=== PATIENT | female | born 1945 | race Caucasian/White ===

== ENCOUNTER 2025-01-08 11:03 | Outpatient (AMB) | payer MEDICARE, SELFPAY ==
--- OUTSIDE RECORDS SUMMARY | 2022-10-28 15:18 | XMS_ITS | Encounter Summary ---
Author Organization [facility] Address [address] [place] [address] Phone Care Team Providers Care Pump And Blower Operator Name Role Phone Jeannie Banda MD Primary Care Prov ider Encounter Details Date Type Department Care Team (Late st Contact Info) Description 10/28/2022 3:18 PM EDT Hospital Encounter [facility] [address] [place] [phone] Nuria Keys, HIGH ENERGY FORMING EQUIPMENT OPERATOR [address] [place] [address] [email or web address] Social History Tobacco Use Types Packs/Day [...] report originally createdby Leif Bueno. Nuria Keys HIGH ENERGY FORMING EQUIPMENT OPERATOR IMG XR CHEST Final Resul t documented in this encounter Visit Diagnoses Not on filedocumented in this encounter Care Teams Pump And Blower Operator Relationship Specialty Start Date End Date Jeannie Banda MD [address] [place] [address] [phone] PCP - General 10/28/22 documented as of this encounter Additional Source Comments The information contained in this document represents components of the legal health record. It is not the complete legal health record.[facility]
--- NOTE | 2025-01-08 10:34 | MHC.PC.OV ---
Vital Signs 01/08/25 11:06 Height 5 ft 5 in Weight 163 lb 6 oz BMI 27.2 BP 114/60 Blood Pressure Location Lt brachial Position Sitting Respiration 16 Pulse 78 Pulse Source Pulse Oximeter Temp 97.9 F Temp Source Oral Pulse Oximetry (%) 98 Oxygen Delivery Method Room Air Intake Visit Reasons: new patient visit Aircraft Steel Fabricator Required: No Accompanied by: Self / Same As Patient Allergies oxycodone Allergy (Intermediate, Verified 01/08/25 11:11) Vomiting tramadol Adverse Reaction (Severe, Verified 01/08/25 11:37) Angioedema Medication List - Last Reconciled 01/08/25 by Estrellita Cook MD acetaminophen ER 650 mg PO Q6H atorvastatin 10 mg PO DAILY blood sugar diagnostic (Accu-Chek Guide test strips) As directed cefadroxil 500 mg PO Q12H celecoxib 200 mg PO DAILY diphenhydramine HCl (Benadryl Allergy) 25 mg PO BEDTIME PRN lancets (Accu-Chek Fastclix Lancet Drum) As directed losartan 50 mg PO DAILY metformin 500 mg PO BID oxybutynin chloride 5 mg PO BID pantoprazole 40 mg PO DAILY polyethylene glycol 3350 (Miralax) 17 grams PO DAILY Tobacco use date assessed: 01/08/25 Fall risk assessment: No Falls in past year Dental Screening Dental Screen Date: 01/08/25 Did you have a dental visit in the last 12 months?: No Did you have a dental problem in the last 6 months where you did not have access to dental care?: No HPI HPI Comments History of Present Illness Details The patient is a 79-year-old female presenting to establish care. Travels to [place] during Winter. Has PCP there. Wants to establish PCP in [place] hence reason for visit. S/P Right Hip Surgery done by [facility]: Post-surgery right hip pain is managed with Tylenol and icing. Was also placed on celebrex and aspirin 325mg bid. Had angioedema reaction to tramadol. Bruising and swelling are noted, especially around the right hip. Established with [facility]. Reports of minimal pain levels, managed with prescribed medication and physical therapy. Angioedema: Recent episode of lip and tongue swelling after tramadol intake. Previous occurrences without a clear etiology. Immediate management was effective with Benadryl. Diabetes Mellitus Type 2: Recent fasting glucose levels from 169-180 mg/dL. A1c at 6.7% in November. Stress and postoperative condition noted to affect glycemic control. Hypertension: Patient continues routine management of blood pressure. Hyperlipidemia: Statin therapy continued as part of management. Urinary Urgency: Frequent urination noted, potentially linked to medication, post-surgery limitations, and fluid management. Medical History: - Diabetes Mellitus Type 2 - Hypertension - Hyperlipidemia - Recurrent Angioedema episodes Surgical History: - Right Hip Surgery (December 31) Medications: - Metformin 500 mg twice daily for Diabetes Mellitus Type 2 - Aspirin 325 mg twice daily for postoperative thromboprophylaxis - Statin for Hyperlipidemia - Tylenol for Right Hip Pain - Oxybutynin for urinary urgency Social History: - Plans to travel to [place] in February - Reports activity includes exercising and walking - Reports typical fluid intake includes milk with medications in evenings Diagnostic Results: - Labs: Recent A1c was 6.7% in November. - Tests: Fasting glucose levels reported between 169-180 mg/dl. Review of Systems - Musculoskeletal: Reports bruising and swelling in right leg after hip surgery. - Endocrine: per hpi - Genitourinary: Reports urinary urgency with often nightly frequency. - Skin: Recent episode of angioedema; lip and tongue swelling. Physical Exam - General: NAD Chest: CTABL. Card: normal s1, s2 Abd: SNTND, +BS Extremities: 1+ edema RLE compared to left Neuro: AOX3 Musculoskeletal- Bruising noted on right hip ; right lower extremity more swollen compared to the left. Assessment and Plan 1. Postoperative Care following Right Hip Surgery - Tylenol and icing continue; monitor swelling. - PT scheduled per orthopedics recs; follow up with ortho consultation for ultrasound if swelling persists. 2. Angioedema - Autoimmune labs ordered; tramadol noted as allergy. 3. Diabetes Mellitus Type 2 - Monitor glucose; aim for fasting below 130 mg/dL. - Plan for A1c retest in February when in [place] 4. Hypertension - Maintain regimen 5. Hyperlipidemia - Statin therapy continues. 6. Urinary Urgency - Shift fluid intake; practice timed voids. Discussion Notes During the appointment, I discussed several health issues with the patient. Regarding a recent angioedema incident, I recommended avoiding tramadol and ordered autoimmune labs to identify any underlying conditions. We addressed diabetes management with the goal of stabilizing fasting glucose levels . We also discussed shifting fluid intake earlier in the day for urinary urgency, maintaining current medications for hypertension and hyperlipidemia, and monitoring anxiety levels. I informed the patient about the potential necessity of an ultrasound to rule out DVT. Patient Instructions - Continue taking Tylenol for pain as needed. - Ice your hip and leg regularly to reduce swelling. - Contact your orthopedic team about swelling of right lower extremity - Monitor your blood sugar daily and aim for fasting levels closer to 120-130 mg/dL. - Finish your fluid intake by around 6:00 PM to help manage nighttime urination. - Avoid taking tramadol due to previous allergic-like reactions. - Maintain your current medication routine as discussed. [facility] Medical History (Updated 01/08/25 @ 15:11 by Estrellita Cook MD) Bruising Angioedema Urinary incontinence Hearing loss, left Herpes zoster B12 deficiency anemia Diabetes mellitus type 2 in nonobese Osteoarthritis of right hip Hyperlipidemia Primary hypertension Surgical History (Updated 01/08/25 @ 11:14 by Estrellita Cook MD) H/O tubal ligation History of total right hip arthroplasty Hx of cholecystectomy Social History Housing: House Patient Tobacco Use Status: Former Tobacco user Years Smoked: 30 years, quit around 49yo e-Cigarette/Vaping Use: Never Used service: No Current occupational status: retired Questionnaire PHQ-9 Over the last 2 weeks, how often have you been bothered by any of the following problems? 1. Little interest or pleasure in doing things: not at all 2. Feeling down, depressed, or hopeless: not at all 3. Trouble falling or staying asleep, or sleeping too much: several days 4. Feeling tired or having little energy: several days 5. Poor appetite or overeating: not at all 6. Feeling bad about yourself - or that you are a failure or have let yourself or your family down: not at all 7. Trouble concentrating on things, such as reading the newspaper or watching television: not at all 8. Moving or speaking so slowly that other people could have noticed. Or the opposite - being so fidgety or restless that you have been moving around a lot more than usual: not at all 9. Thoughts that you would be better off or of hurting yourself in some way: not at all Total score: 2 Source: Developed by Drs. Bang Muniz, Alexandra Lackey, Blane Hernández and colleagues, with an educational nitin from [employer]. Thrive Questionnaire Date Thrive assessed: 01/08/25 I am a: Patient What is your living situation today?: I have a steady place to live Within the past 12 months, did the food you bought not last and you didn't have the money to get more?: Never true Within the past 12 months, did you worry whether your food would run out before you got money to buy more?: Never true Do you have trouble paying for medicines?: No Do you have trouble getting transportation to medical appointments?: No Do you have trouble paying your heating and electricity bill?: No Do you have trouble taking care of your child, family member or friend?: No Do you have trouble with day-to-day activities such as bathing, preparing meals, shopping, managing finances, etc.?: No Are you currently unemployed and looking for a job?: No Are you interested in more education?: No THRIVE Score: 0 AUDIT C Alcohol Use Questionnaire (AUDIT-C) 1. How often do you have a drink containing alcohol?: 4 or more times a week 2. How many drinks containing alcohol do you have on a typical day when you are drinking?: 1 or 2 3. How often do you have six or more drinks on one occasion?: Never Total Score: 4 GUS-7 AMB Questionnaire GUS-7 Date GUS - 7 assessed: 01/08/25 Feeling nervous, anxious, or on edge: 0 = Not at all Not being able to stop or control worryin = Not at all Worrying too much about different things: 0 = Not at all Trouble relaxin = Not at all Being so restless that it is hard to sit still: 1 = Several days Becoming easily annoyed or irritable: 0 = Not at all Feeling afraid as if something awful might happen: 0 = Not at all Total GUS-7 score (0-4 normal; 5-9 mild; 10-14 moderate; 15-21 severe): 1 Source: Developed by Drs. Bang Muniz, Alexandra Lackey, Blane Hernández and colleagues, with an educational nitin from [employer]. Physical exam (Primary Care) Vital Signs: Last Vital Signs Temp 97.9 F 01/08/25 11:06 Pulse 78 01/08/25 11:06 Resp 16 01/08/25 11:06 BP 114/60 01/08/25 11:06 Pulse Ox 98 01/08/25 11:06 Oxygen Delivery Method Room Air 01/08/25 11:06 BMI result Body Mass Index 27.2 Tobacco/Smoking Status: Tobacco use Status Tobacco use date assessed 01/08/25 01/08/25 10:34 Patient Tobacco Use Status Former Tobacco user 01/08/25 11:24 e-Cigarette/Vaping Use Never Used 01/08/25 11:24 PHQ-9: PHQ-9 Score PHQ-9: Total score 2 01/08/25 15:11 Thrive Assessment: Date of Thrive Assessment Date Thrive assessed 01/08/25 01/08/25 12:01 Coding Level of Care Code New Pt Level 4 (95475) Complex EM visit Add On G2211 Diagnoses Primary hypertension I10 Angioedema, subsequent encounter T78.3XXD Encounter type: subsequent encounter Hyperlipidemia E78.5 Diabetes mellitus type 2 in nonobese E11.9 Urinary incontinence, unspecified type R32 Urinary Incontinence type: unspecified incontinence Assessment & Plan Assessment & Plan (1) Primary hypertension: Code(s): I10 - Essential (primary) hypertension Category: Medical (2) Angioedema: Code(s): T78.3XXA - Angioneurotic edema, initial encounter Category: Medical Qualifiers: Encounter type: subsequent encounter Qualified Code(s): T78.3XXD - Angioneurotic edema, subsequent encounter (3) Hyperlipidemia: Code(s): E78.5 - Hyperlipidemia, unspecified Category: Medical (4) Diabetes mellitus type 2 in nonobese: Code(s): E11.9 - Type 2 diabetes mellitus without complications Category: Medical (5) Urinary incontinence: Code(s): R32 - Unspecified urinary incontinence Category: Medical Qualifiers: Urinary Incontinence type: unspecified incontinence Qualified Code(s): R32 - Unspecified urinary incontinence Plan - Continue Tylenol and icing for pain. - Monitor right lower extremity swelling; call orthopedics for further evaluation and consideration of ultrasound - Shift fluid intake to earlier in the day. - Maintain current medication regimen. Orders: Orders JOSE Reflex Titer and Pattern Today T78.3XXA - Angioneurotic edema, initial encounter Sm Sm/PATCH WORKER Antibodies Today T78.3XXA - Angioneurotic edema, initial encounter Erythrocyte Sedimentation Rate Today T78.3XXA - Angioneurotic edema, initial encounter Complement C4 Today T78.3XXA - Angioneurotic edema, initial encounter Complete Blood Count Auto Diff Today T14.8XXA - Other injury of unspecified body region, initial encounter, T78.3XXA - Angioneurotic edema, initial encounter Comprehensive Met. Panel Today I10 - Essential (primary) hypertension, T78.3XXA - Angioneurotic edema, initial encounter Anti DNA DS Antibody Today T78.3XXA - Angioneurotic edema, initial encounter C Reactive Protein Today T78.3XXA - Angioneurotic edema, initial encounter
[2025-01-08 11:06] VITALS: BP 114/60; PULSE 78; RESP 16; TEMP 36.6; O2SAT 98; BMI 27.2
--- OUTSIDE RECORDS SUMMARY | 2025-01-08 14:16 | XMS_ITS | Clinical Summary ---
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 Active atorvastatin (LIPITOR) 10 MG tablet 08/04/2022 Active ACCU-CHEK GUIDE TEST STRIPS Strp strips USE TO CHECK BLOOD SUGAR EVERY DAY 10/05/2022 Active ACCU-CHEK FASTCLIX LANCET DRUM Misc 2022 Active losartan (COZAAR) 50 MG tablet 07/26/2022 Active oxyBUTYnin (DITROPAN-XL) 5 MG 24 hr tablet 08/04/2022 Act franko Active Problems No known active problems Immunizations Immunization Administration Dates Next Due COVID-19 (Pre-01/03) Moderna Vaccine, mRNA, PF 01/20/2021,05/22/2020,04/24/2020 Influenza High-Dose Quadriva lent Preservative Free IM 01/02/2020 Tdap 08/18/2018 Social History Tobacco Use Types Packs/Day Years Used Date Smoking Tobacco: Former Cigarettes Smokeless Tobacco: Never Tobacco Cessation:Counseling Given: Not Answered Education Answer Date Recorded Are you interested [...] on file Sexual Orientation Not on file Last Filed Vital Signs Vital Sign Reading Time Taken Comments Blood Pressure 138/78 10/28/2022 3:04 PM EDT Pulse 66 10/28/2022 3:04 PM EDT Temperature 36.4 C (97.6 F) 10/28/2022 3:04 PM EDT Respiratory Rate 18 10/28/2022 3:04 PM EDT Oxygen Saturation 97% 10/28/2022 3:04 PM EDT Inhaled Oxygen Concentration - - Weight 77.6 kg (171 lb) 10/28/2022 3:04 PM EDT Height - - Body Mass Index - - Plan of Treatment Health Maintenance Due Date Last Done Comments CREATININE LEVEL 1946 LIPID PANEL 1946 POTASSIUM LEVEL 1946 DEPRESSION SCREENING 1958 SMOKING Hx and SMOKELESS TOBACCO SCREENING 10/27/1959 HEPATITIS C SCREENING 1964 PNEUMOCOCCAL VACCINES (50+ years) (1 of 1 - PCV) 1996 ZOSTER VACCINES (1 of 2) 1996 OSTEOPOROSIS SCREENING INITI AL (ONE-TIME) 10/27/2011 RSV VACCINE (1 - 1-dose 75+ series) 2021 INFLUENZA VACCINE (#1) 2024 01/02/2020 COVID-19 VACCINE (4 - 2024-2 6 season) 2024 01/20/2021, 05/22/2020, 04/24/2020 Adult Td,Tdap Booster 08/18/2028 08/18/2018 HEPATITIS A VACCINES Aged Out No long er eligible based on patient's age to complete this topic HIB VACCINES Aged Out No longer eligi ble based on patient's age to complete this topic MENINGOCOCCAL VACCINES (ACWY) Aged Out No longer eligible based on patient's age to complete this topic MENINGOCOCCAL VACCINES (B) Aged Out N o longer eligible based on patient's age to complete this topic Medical Devices Not on file Insurance MEDICARE REPLACEMENT MEDICARE REPLACEMENT MEDICARE REPLACEMENT MEDICARE REPLACEMENT MEDICARE REPLACEMENT Care Teams Petroleum Blending Plant Operator Relationship Specialty Start Date End Date Jeannie Banda MD [address] [place] [address] PCP - General 10/28/22 Additional Source Comments The information contained in this document represents components of the legal health record. It is not the complete legal health record.[facility]
== END 2025-01-08 11:58 | disposition home or self-care (01) ==
LOC: HO.HMCHD 11:03
PROVIDERS: PCP Internal Medicine; Visit Provider Internal Medicine
DX: I10 Essential (primary) hypertension (principal); T78.3XXD Angioneurotic edema, subsequent encounter; E78.5 Hyperlipidemia, unspecified; E11.9 Type 2 diabetes mellitus without complications; R32 Unspecified urinary incontinence

== ENCOUNTER 2025-01-08 12:24 | Outpatient (REF) | payer MEDICARE, SELFPAY ==
[2025-01-08 13:13] LABS: MANUAL DIFF FLAG NO
[2025-01-08 13:23] LABS: Hematocrit 31.9 % (37.0-47.0); Hemoglobin 10.5 g/dl (12.0-16.0); Imm Gran Abs Auto 0.06 X10*3/uL (0.00-0.03); Imm Gran Pct Auto 0.8 % (0.0-0.4); Lymphocytes Absolute Auto 1.6 X10*3/uL (1.2-4.9); Mean Corpuscular HGB Conc 32.9 g/dl (31.0-35.0); Mean Corpuscular Hemoglobin 29.2 pg (27.0-33.0); Mean Corpuscular Volume 88.6 fL (80.0-98.0); NRBC Abs Auto 0.000 X10*3/uL (0.0-0.012); NRBC Pct Auto 0.0 /100WBC (0.0-0.2); Platelet Count 298 X10*3/uL (160-400); Red Blood Count 3.60 X10*6/uL (4.20-5.50); White Blood Count 7.7 X10*3/uL (4.8-10.8)
[2025-01-08 13:44] LABS: Alanine Aminotransferase 22 U/L (0-31); Albumin Level 3.9 g/dL (3.5-5.0); Alkaline Phosphatase 75 U/L (39-117); Anion Gap 14 (12-20); Aspartate Amino Transferase 21 U/L (5-31); Blood Urea Nitrogen 19 mg/dL (9-16); Calcium 9.8 mg/dL (8.4-10.2); Carbon Dioxide 25 mmol/L (22-29); Chloride 106 mmol/L (96-108); Estimated Glomerular Filt Rate > 60; Potassium 4.2 mmol/L (3.3-5.1); Sodium 141 mmol/L (135-145); Total Protein 6.6 g/dL (6.5-8.0)
[2025-01-14 23:29] LABS: SM/Ribonucleoprotein Ab <1.0 NEG AI (<1.0 NEG); Smith Protein <1.0 NEG AI (<1.0 NEG)
[2025-01-16 12:18] LABS: Anti Nuclear Antibody Pattern Nuclear, Homogeneous; Anti Nuclear Antibody Screen POSITIVE (NEGATIVE); Anti Nuclear Antibody Titer 1:80 titer
== END 2025-01-08 12:25 | disposition home or self-care (01) ==
LOC: HO.10HDL 12:24
PROVIDERS: Visit Provider Internal Medicine
DX: Z01.84 Encounter for antibody response examination (principal); T78.3XXA Angioneurotic edema, initial encounter; I10 Essential (primary) hypertension; T14.8XXA Other injury of unspecified body region, initial encounter
CPT/HCPCS: 36415; 80053; 85025; 85652; 86038; 86039; 86140; 86160; 86225; 86235; 99202

== ENCOUNTER 2025-01-10 08:44 | Outpatient (AMB) | payer MEDICARE, SELFPAY ==
--- OUTSIDE RECORDS SUMMARY | 2022-10-28 15:18 | XMS_ITS | Encounter Summary ---
Author Organization [facility] Address [address] [place] [address] Phone Care Team Providers Care District Resource Officer Name Role Phone Jeannie Banda MD Primary Care Prov ider Encounter Details Date Type Department Care Team (Late st Contact Info) Description 10/28/2022 3:18 PM EDT Hospital Encounter [facility] [address] [place] [address] Nuria Keys, CIRCUIT JUDGE [address] [place] [address] [email or web address] Social History Tobacco Use Types Packs/Day [...] report originally createdby Leif Bueno. Nuria Keys CIRCUIT JUDGE IMG XR CHEST Final Resul t documented in this encounter Visit Diagnoses Not on filedocumented in this encounter Care Teams District Resource Officer Relationship Specialty Start Date End Date Jeannie Banda MD [address] [place] [address] [phone] PCP - General 10/28/22 documented as of this encounter Additional Source Comments The information contained in this document represents components of the legal health record. It is not the complete legal health record.[facility]
--- NOTE | 2025-01-10 08:36 | A.OFFPC_ITS ---
Vital Signs 01/10/25 08:47 Height 5 ft 5 in Weight 160 lb 8 oz BMI 26.7 BP 120/60 Blood Pressure Location Lt brachial Position Sitting Respiration 16 Pulse 80 Pulse Source Pulse Oximeter Temp 97.8 F Temp Source Temporal Artery Scan Pulse Oximetry (%) 98 Intake Visit Reasons: DVT gastroc f/u Network Control Operator Required: No Accompanied by: Self / Same As Patient Allergies oxycodone Allergy (Intermediate, Verified 01/10/25 08:49) Vomiting tramadol Adverse Reaction (Severe, Verified 01/10/25 08:49) Angioedema Medication List - Last Reconciled 01/10/25 by Estrellita Cook MD acetaminophen ER 650 mg PO Q6H apixaban (Eliquis DVT-PE Treat 30D Start) PO PER PKG DIR atorvastatin 10 mg PO DAILY blood sugar diagnostic (Accu-Chek Guide test strips) As directed diphenhydramine HCl (Benadryl Allergy) 25 mg PO BEDTIME PRN lancets (Accu-Chek Fastclix Lancet Drum) As directed losartan 50 mg PO DAILY metformin 500 mg PO BID oxybutynin chloride 5 mg PO BID pantoprazole 40 mg PO DAILY polyethylene glycol 3350 (Miralax) 17 grams PO DAILY Tobacco use date assessed: 01/08/25 Dental Screening Dental Screen Date: 01/08/25 HPI HPI Comments History of Present Illness Details The patient is a 79 year old female presenting with management of postoperative deep vein thrombosis (DVT) in left leg. Postoperative Deep Vein Thrombosis (DVT): Diagnosed with a clot in the left leg post-surgery 2 days ago. Started anticoagulation therapy eliquis. Plan for transition to warfarin due to cost. INR target discussed. Vitamin B12 Deficiency: History of B12 deficiency managed with supplements, paused pre-surgery. Iron Deficiency Anemia: Post-surgery anemia noted, associated with bruising. Angioedema: Past issues with lip swelling linked to tramadol. Labs pending for evaluation. Increased Respiratory Effort/shortness of breath: Family noticed increased breathing effort. Patient experiences this during exertion. Social History: - Discussed having a daughter who is a n hernestoe Diagnostic Results: - Tests: Pending labs for autoimmune chrystal lysis - Diagnostics: Plan for stat lung CT ang io to determine any clots in lungs Review of Systems - Respiratory: Reports increased respira tory effort during exertion; Denies chest pain - Msk: improved right hip pain Physical Exam - Respiratory- Lungs clear to auscultati on bilaterally - Cardiovascular- Normal S1 S2 heart marga nds - Abdominal- Abdomen soft, non-tender, n on-distended - General- No acute distress Assessment and Plan 1. Postoperative Deep Vein Thrombosis (D VT) - Warfarin planned for financial feasibi lity. - Monitor INR. - Coumadin clinic referral. - Lung CT angio planned - Complete at least 7 days of eliquis th en transition to coumadin 2. Vitamin B12 Deficiency - Resume supplements. 3. Iron Deficiency Anemia - Follow-up labs. 4. Angioedema - Avoid tramadol. 5. Increased Respiratory Effort - Monitor symptoms. . Discussion Notes During our discussion, we detailed the management of the patient's postoperative deep vein thrombosis, emphasizing the switch to warfarin due to cost. I explained the importance of monitoring INR levels to prevent complications. A lung CT angio will assess for potential pulmonary embolism, given the reported increased respiratory effort, though no acute distress was observed. We reviewed the halting and resuming of vitamin supplements. The patient was advised on contraindications for certain pain medications . We discussed the immediate reporting of any new or progression in symptoms. Patient Instructions - Monitor for any unusual bleeding or in creased bruising. - Avoid NSAIDs; use Tylenol for pain man agement instead. - Return to all vitamin and supplement r egimens post-surgery as previously instructed. - Watch for any new symptoms like shortn ess of breath. - Seek immediate care if you experience chest pain or there's blood in your stool. - Expect a call regarding the scheduling of your lung CT scan. [facility] Medical History (Updated 01/10/25 @ 12:35 by Estrellita Cook MD) Deep vein thrombosis Shortness of breath Bruising Angioedema Urinary incontinence Hearing loss, left Herpes zoster B12 deficiency anemia Diabetes mellitus type 2 in nonobese Osteoarthritis of right hip Hyperlipidemia Primary hypertension Surgical History (Updated 01/08/25 @ 11:14 by Estrellita Cook MD) H/O tubal ligation History of total right hip arthroplasty Hx of cholecystectomy Social History Housing: House Patient Tobacco Use Status: Former Tobacco user Years Smoked: 30 years, quit around 49yo e-Cigarette/Vaping Use: Never Used service: No Current occupational status: retired Questionnaire Thrive Questionnaire Date Thrive assessed: 01/08/25 GUS-7 AMB Questionnaire GUS-7 Date GUS - 7 assessed: 01/08/25 Source: Developed by Drs. Bang Muniz, Alexandra Lackey, Blane Hernández and colleagues, with an educational nitin from [employer]. Physical exam (Primary Care) Vital Signs: Last Vital Signs Temp 97.8 F 01/10/25 08:47 Pulse 80 01/10/25 08:47 Resp 16 01/10/25 08:47 BP 120/60 01/10/25 08:47 Pulse Ox 98 01/10/25 08:47 BMI result Body Mass Index 26.7 Tobacco/Smoking Status: Tobacco use Status Tobacco use date assessed 01/08/25 01/10/25 08:36 Patient Tobacco Use Status Former Tobacco user 01/10/25 08:36 e-Cigarette/Vaping Use Never Used 01/10/25 08:36 Thrive Assessment: Date of Thrive Assessment Date Thrive assessed 01/08/25 01/10/25 08:36 Coding Level of Care Code Est Pt Level 4 (12024) Complex EM visit Add On G2211 Diagnoses Acute deep vein thrombosis (DVT) of right lower extremity, unspecified vein I82.401 DVT location: lower extremity Affected thrombotic vein of extremity: unspecified vein of extremity Chronicity: acute Laterality: right Shortness of breath R06.02 Angioedema, subsequent encounter T78.3XXD Encounter type: subsequent encounter Anemia due to vitamin B12 deficiency, unspecified B12 deficiency type D51.9 Vitamin B12 deficiency anemia type: unspecified B12 deficiency Assessment & Plan Assessment & Plan (1) Deep vein thrombosis: Code(s): I82.409 - Acute embolism and thrombosis of unspecified deep veins of unspecified lower extremity Category: Medical Qualifiers: DVT location: lower extremity Affected thrombotic vein of extremity: unspecified vein of extremity Chronicity: acute Laterality: right Qualified Code(s): I82.401 - Acute embolism and thrombosis of unspecified deep veins of right lower extremity (2) Shortness of breath: Code(s): R06.02 - Shortness of breath Category: Medical (3) Angioedema: Code(s): T78.3XXA - Angioneurotic edema, initial encounter Category: Medical Qualifiers: Encounter type: subsequent encounter Qualified Code(s): T78.3XXD - Angioneurotic edema, subsequent encounter (4) B12 deficiency anemia: Code(s): D51.9 - Vitamin B12 deficiency anemia, unspecified Category: Medical Qualifiers: Vitamin B12 deficiency anemia type: unspecified B12 deficiency Qualified Code(s): D51.9 - Vitamin B12 deficiency anemia, unspecified Plan - Bridge therapy to warfarin with INR monitoring. - Immediate lung CTangio for further assessment due to increased respiratory effort - Resume vitamin supplements. Orders: Orders CT angio chest PE protocol Today R06.02 - Shortness of breath Referrals Anticoagulation Service/Clinic I82.409 - Acute embolism and thrombosis of unspecified deep veins of unspecified lower extremity
[2025-01-10 08:47] VITALS: BP 120/60; PULSE 80; RESP 16; TEMP 36.6; O2SAT 98; BMI 26.7
== END 2025-01-10 09:28 | disposition home or self-care (01) ==
LOC: HO.HMCHD 08:45
PROVIDERS: PCP Internal Medicine; Visit Provider Internal Medicine
DX: I82.401 Acute embolism and thrombosis of unspecified deep veins of right lower extremity (principal); R06.02 Shortness of breath; T78.3XXD Angioneurotic edema, subsequent encounter; D51.9 Vitamin B12 deficiency anemia, unspecified

== ENCOUNTER → 2025-01-10 08:44 | Outpatient (BNVA) | payer MEDICARE, SELFPAY | PROVIDERS: PCP Internal Medicine; Visit Provider Internal Medicine | DX: I82.401 Acute embolism and thrombosis of unspecified deep veins of right lower extremity (principal); R06.02 Shortness of breath; T78.3XXD Angioneurotic edema, subsequent encounter; D51.9 Vitamin B12 deficiency anemia, unspecified; D50.9 Iron deficiency anemia, unspecified; Z79.01 Long term (current) use of anticoagulants | CPT/HCPCS: 99212 ==

== ENCOUNTER 2025-01-11 13:43 | Outpatient (REF) | payer MEDICARE, SELFPAY ==
--- OUTSIDE RECORDS SUMMARY | 2022-10-28 15:18 | XMS_ITS | Encounter Summary ---
Author Organization [facility] Address [address] [place] [address] Phone Care Team Providers Care Insole Channeler Name Role Phone Jeannie Banda MD Primary Care Prov ider Encounter Details Date Type Department Care Team (Late st Contact Info) Description 10/28/2022 3:18 PM EDT Hospital Encounter [facility] [address] [place] [address] Nuria Keys, FEDERAL AGENT [address] [place] [address] [email or web address] Social History Tobacco Use [...] report originally createdby Leif Bueno. Nuria Keys FEDERAL AGENT IMG XR CHEST Final Resul t documented in this encounter Visit Diagnoses Not on filedocumented in this encounter Care Teams Insole Channeler Relationship Specialty Start Date End Date Jeannie Banda MD [address] [place] [address] [phone] PCP - General 10/28/22 documented as of this encounter Additional Source Comments The information contained in this document represents components of the legal health record. It is not the complete legal health record.[facility]
--- NOTE | ~2025-01-11 | CT_ITS ---
EXAMINATION: CT CHEST ANGIOGRAPHY WITH IV CONTRAST INDICATION: R06.02 - Shortness of breath COMPARISON: There are no prior studies available for comparison. TECHNIQUE: Helical CT scan of the chest was performed following administration of intravenous contrast (65 mL Omnipaque 350). The contrast bolus was timed to optimally opacify the pulmonary arteries. Thin sections were obtained through the pulmonary arteries. Coronal and sagittal reformatted images were generated. 3D/MIP reconstructed images are also obtained and reviewed. This CT exam was performed with one or more of the following dose reduction techniques: automated exposure control, adjustment of the mA and/or kV according to patient size, use of iterative reconstruction technique. DLP: 100 mGy-cm CHEST: THYROID: The thyroid gland is unremarkable. PULMONARY ARTERIES: No intraluminal filling defects are identified within the pulmonary arteries to suggest pulmonary emboli. LUNGS: There is a mild to moderate emphysema. There is a 4 mm nodule within the right lower lobe (series 7, image 81) and a 3 mm nodule of the left lung apex (series 7, image 24). MEDIASTINUM: There is no mediastinal lymphadenopathy. SVETLANA: There is no hilar lymphadenopathy. CARDIOVASCULATURE: The heart is normal in size. There is no pericardial effusion. The thoracic aorta is normal in caliber. DEGREE OF CORONARY CALCIFICATION: not evaluable, due to dense contrast in the coronary arteries. PLEURA: There is no pleural effusion. No pneumothorax. MAIN AIRWAYS: The mainstem bronchi and proximal branches are patent. AXILLA: There is no axillary lymphadenopathy. UPPER ABDOMEN: The visualized portions of the liver, spleen, and left adrenal gland are unremarkable. There is a 1.8 cm right adrenal nodule. BONES AND SOFT TISSUES: There is an 8 mm density in the upper outer quadrant of the left breast, suspicious for a mass. CT/CT angio chest PE protocol IMPRESSION: 1. No evidence of pulmonary emboli. 2. 8 mm possible mass in the upper outer quadrant of the left breast. Correlation with mammography and breast ultrasound is recommended. 3. Mild to moderate emphysema. Because to moderate emphysema is an independent risk factor for lung cancer, consider entering the patient into a program of yearly lung cancer screening with low dose chest CT. 4. Subcentimeter bilateral pulmonary nodules as described. Please see Fleischner Society guidelines below. Fleischner Criteria for pulmonary nodule follow-up SOLID NODULES: Low risk patient: <6mm: no follow-up 6-8mm: 6 month follow-up CT >8mm: PET/Biopsy/ 3 month follow-up CT High risk patient: <6mm: 12 month follow-up CT 6-8mm: 6 month follow-up CT >8mm: PET/Biopsy/ 3 month follow-up CT SUB-SOLID/GROUNDGLASS NODULES: All patients: > or = 6mm: 6 month follow-up CT *Please note that in patients in the following categories, the Fleischner criteria do not apply: Immunocompromised, lung cancer screening population, age below 35, and patients with known malignancy Electronically signed by: Bang Crane MD 01/11/2025 02:44 PM EDT
[2025-01-11] MEDS: iohexoL 350 MG/ML 100 ML INFUS..BTL IV (14:31)
--- OUTSIDE RECORDS SUMMARY | 2025-01-11 14:42 | XMS_ITS | Clinical Summary ---
Author Organization [facility] Address [address] [id number] Phone Care Team Providers Care Glass Worker Name Role Phone Jeannie Banda MD Primary [...] REPLACEMENT MEDICARE REPLACEMENT MEDICARE REPLACEMENT Care Teams Glass Worker Relationship Specialty Start Date End Date Jeannie Banda MD [address] [place] [address] PCP - General 10/28/22 Additional Source Comments The information contained in this document represents components of the legal health record. It is not the complete legal health record.[facility]
== END 2025-01-11 13:44 | disposition home or self-care (01) ==
LOC: HO.CT 13:43
PROVIDERS: PCP Internal Medicine; Visit Provider Internal Medicine
DX: R06.02 Shortness of breath (principal)
CPT/HCPCS: 71275; Q9967

== ENCOUNTER → 2025-01-11 13:44 | Outpatient (BNV) | payer MEDICARE, SELFPAY | PROVIDERS: PCP Internal Medicine; Visit Provider Radiology Diagnostic Radiology | DX: R06.02 Shortness of breath (principal) | CPT/HCPCS: 71275 ==

== ENCOUNTER 2025-02-01 10:31 | Outpatient (AMB) | payer MEDICARE, SELFPAY ==
--- OUTSIDE RECORDS SUMMARY | 2022-10-28 14:18 | XMS_ITS | Encounter Summary ---
Author Organization [facility] Address [address] [place] [address] Phone Care Team Providers Care Enrollment Eligibility Representative Name Role Phone Jeannie Banda MD Primary Care Prov ider Encounter Details Date Type Department Care Team (Late st Contact Info) Description 10/28/2022 3:18 PM EDT Hospital Encounter [facility] [address] [place] [address] Nuria Keys, CHARGING MANIPULATOR [address] [place] [address] [email or web address] Social History Tobacco Use Types Packs/Day Years [...] report originally createdby Leif Bueno. Nuria Keys CHARGING MANIPULATOR IMG XR CHEST Final Resul t documented in this encounter Visit Diagnoses Not on filedocumented in this encounter Care Teams Enrollment Eligibility Representative Relationship Specialty Start Date End Date Jeannie Banda MD [address] [place] [address] [phone] PCP - General 10/28/22 documented as of this encounter Additional Source Comments The information contained in this document represents components of the legal health record. It is not the complete legal health record.[facility]
--- NOTE | 2025-02-01 10:43 | A.OFFPC_ITS ---
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 Required: No Accompanied by: Spouse Allergies oxycodone Allergy (Intermediate, Verified 02/01/25 10:45) Vomiting tramadol Adverse Reaction (Severe, Verified 02/01/25 10:45) Angioedema Medication List - Last Reconciled 02/01/25 by Estrellita Cook MD acetaminophen ER 650 mg PO Q6H PRN apixaban (Eliquis DVT-PE Treat 30D Start) PO PER PKG DIR atorvastatin 10 mg PO DAILY blood sugar diagnostic (Accu-Chek Guide test strips) As directed cholecalciferol (vitamin D3) 50 mcg PO DAILY cyanocobalamin (vitamin B-12) 1,000 mcg PO DAILY enoxaparin (Lovenox) 109 mg (0.7267 mL) subcut DAILY 3 weeks lancets (Accu-Chek Fastclix Lancet Drum) As directed losartan 50 mg PO DAILY magnesium glycinate mg PO metformin 500 mg PO BID oxybutynin chloride 5 mg PO BID pantoprazole 40 mg PO DAILY polyethylene glycol 3350 (Miralax) 17 grams PO DAILY Tobacco use date assessed: 01/08/25 Dental Screening Dental Screen Date: 01/08/25 HPI HPI Comments History of Present Illness Details The patient is a 79 year old individual presenting for management and transition of anticoagulant therapy from eliquis to warfarin for DVT management. Long-term Anticoagulation: The patient is currently taking Eliquis and took a dose this morning. A transition to warfarin (Coumadin) is planned, which requires bridging therapy with Lovenox injections. The patient reports a fear of needles but will receive instruction on self-administration. The goal is to stabilize the patient's INR between 2 and 3 before upcoming travel. Post op hip surgery: The patient is undergoing physical therapy and has an upcoming appointment with Dr. Hudson on the , which is hoped to be a discharge visit. [facility] Medical History (Updated 01/10/25 @ 12:35 by Estrellita Cook MD) Deep vein thrombosis Shortness of breath Bruising Angioedema Urinary incontinence Hearing loss, left Herpes zoster B12 deficiency anemia Diabetes mellitus type 2 in nonobese Osteoarthritis of right hip Hyperlipidemia Primary hypertension Surgical History (Updated 01/08/25 @ 11:14 by Estrellita Cook MD) H/O tubal ligation History of total right hip arthroplasty Hx of cholecystectomy Social History Housing: House Patient Tobacco Use Status: Former Tobacco user Years Smoked: 30 years, quit around 49yo e-Cigarette/Vaping Use: Never Used service: No Current occupational status: retired Questionnaire PHQ-9 Over the last 2 weeks, how often have you been bothered by any of the following problems? 1. Little interest or pleasure in doing things: not at all 2. Feeling down, depressed, or hopeless: not at all 3. Trouble falling or staying asleep, or sleeping too much: not at all 4. Feeling tired or having little energy: not at all 5. Poor appetite or overeating: not at all 6. Feeling bad about yourself - or that you are a failure or have let yourself or your family down: not at all 7. Trouble concentrating on things, such as reading the newspaper or watching television: not at all 8. Moving or speaking so slowly that other people could have noticed. Or the opposite - being so fidgety or restless that you have been moving around a lot more than usual: not at all 9. Thoughts that you would be better off or of hurting yourself in some way: not at all Total score: 0 Source: Developed by Drs. Bang Muniz, Blane Barton and colleagues, with an educational nitin from [employer]. Thrive Questionnaire Date Thrive assessed: 01/08/25 GUS-7 AMB Questionnaire GUS-7 Date GUS - 7 assessed: 01/08/25 Source: Developed by Drs. Bang Muniz, Blane Barton and colleagues, with an educational nitin from [employer]. Review of Systems Narrative Review of Systems - Gen: negative: - Musculoskeletal: per hpi Physical exam (Primary Care) Vital Signs: Last Vital Signs Temp 97.3 F 02/01/25 10:44 Pulse 72 02/01/25 10:44 Resp 16 02/01/25 10:44 BP 130/62 02/01/25 10:44 Pulse Ox 97 02/01/25 10:44 Oxygen Delivery Method Room Air 02/01/25 10:44 BMI result Body Mass Index 27.1 Tobacco/Smoking Status: Tobacco use Status Tobacco use date assessed 01/08/25 02/01/25 10:51 Patient Tobacco Use Status Former Tobacco user 02/01/25 10:51 e-Cigarette/Vaping Use Never Used 02/01/25 10:51 PHQ-9: PHQ-9 Score PHQ-9: Total score 0 02/01/25 11:18 Thrive Assessment: Date of Thrive Assessment Date Thrive assessed 01/08/25 02/01/25 10:51 Narrative Physical Exam - Cardiovascular: Heart auscultated. soft murmur across precordium - Respiratory: Lungs auscultated. No wheezing, clear to ascultation bilaterally -Extremities: no edema bilaterally Coding Level of Care Code Est Pt Level 3 (84365) Complex visit Add On G2211 Diagnoses Acute deep vein thrombosis (DVT) of right lower extremity, unspecified vein I82.401 Affected thrombotic vein of extremity: unspecified vein of extremity Chronicity: acute DVT location: lower extremity Laterality: right Assessment & Plan Assessment & Plan (1) Deep vein thrombosis: Code(s): I82.409 - Acute embolism and thrombosis of unspecified deep veins of unspecified lower extremity Category: Medical Qualifiers: Affected thrombotic vein of extremity: unspecified vein of extremity Chronicity: acute DVT location: lower extremity Laterality: right Qualified Code(s): I82.401 - Acute embolism and thrombosis of unspecified deep veins of right lower extremity Plan Assessment and Plan 1. Long-term Anticoagulation - The patient requires a transition from Eliquis to warfarin due to cost of eliquis. This necessitates a bridging period with Lovenox injections. The goal is to achieve a therapeutic INR of 2-3. The patient's reported needle phobia is a potential barrier to adherence. The plan includes: - Discontinue Eliquis; the last dose was taken this morning. - Obtain a baseline INR level today. - Start warfarin 3 mg (three 1 mg tablets) daily, beginning tomorrow. - Initiate Lovenox injections to bridge therapy. The patient will receive injection training from a nurse today at 4 PM. - Schedule a follow-up INR check on Tuesday to monitor therapy. 2. Post op hip surgery - The plan is to continue PT and follow up with Dr. Hudson on the for potential discharge from care. Plan - The patient will discontinue Eliquis. - A baseline INR will be drawn today at the lab. - The patient will start warfarin (Coumadin) 3 mg (three 1 mg tablets) daily, beginning tomorrow. - The patient will begin Lovenox injections as a bridge until the warfarin is therapeutic. - The patient will return to the clinic at 4 PM today for a nurse visit for Lovenox injection training. - A follow-up INR lab test is scheduled for next Tuesday. - The patient will continue physical therapy. - Once the warfarin dose is stable, a 90-day supply will be ordered through [facility]. - Patient will then have coumadin managed by her PCP in [place] Discussion Notes I discussed with the patient the plan to transition from Eliquis to warfarin (Coumadin). I explained that this transition requires a bridging period with Lovenox injections, which will likely last for 3-5 days, to ensure the patient's blood remains adequately anticoagulated while the warfarin takes effect. We discussed the Lovenox self-injection technique. Patient Instructions - Do not take any more doses of your Eliquis medication. - Starting tomorrow, take 3 tablets of warfarin (Coumadin) 1 mg once every day. - You will need to give yourself a Lovenox shot once a day. You can take this around lunchtime. - Please return to the clinic today at 4:00 PM. A nurse will show you how to give yourself the Lovenox shot. - Please go to the lab in our building today for a blood test (INR). - You must return to the lab on Tuesday for another blood test. This does not require fasting. Orders: Orders Prothrombin Time INR Today I82.401 - Acute embolism and thrombosis of unspecified deep veins of right lower extremity Partial Thromboplastin Time Today I82.401 - Acute embolism and thrombosis of unspecified deep veins of right lower extremity Prothrombin Time INR 02/05/25 I82.401 - Acute embolism and thrombosis of unspecified deep veins of right lower extremity Medications: New warfarin 3 mg (3 x 1 mg) PO DAILY 90 tabs 1RF 30 days Discontinued apixaban (Eliquis DVT-PE Treat 30D Start) Discontinued Reason: Doctor's Order PO PER PKG DIR 74 [id number] [id number] Patient Instructions: STOP ELIQUIS EVENING DOSE ON 02/01 START LOVENOX INJECTION THIS AFTERNOON START WARFARIN 3MG ON 02/02 MORNING, TAKE LOVENOX IN AFTERNOON GET REPEAT INR ON 02/05
[2025-02-01 10:44] VITALS: BP 130/62; PULSE 72; RESP 16; TEMP 36.3; O2SAT 97; BMI 27.1
--- OUTSIDE RECORDS SUMMARY | 2025-02-01 11:14 | XMS_ITS | Clinical Summary ---
Author Organization [facility] Address [address] [phone] Phone Care Team Providers Care Roughener Name Role Phone Jeannie Banda MD Primary [...] REPLACEMENT MEDICARE REPLACEMENT MEDICARE REPLACEMENT Care Teams Roughener Relationship Specialty Start Date End Date Jeannie Banda MD [address] [place] [address] PCP - General 10/28/22 Additional Source Comments The information contained in this document represents components of the legal health record. It is not the complete legal health record.[facility]
== END 2025-02-01 11:22 | disposition home or self-care (01) ==
LOC: HO.HMCHD 10:31
PROVIDERS: PCP Internal Medicine; Visit Provider Internal Medicine
DX: I82.401 Acute embolism and thrombosis of unspecified deep veins of right lower extremity (principal)

== ENCOUNTER 2025-02-01 11:26 | Outpatient (REF) | payer MEDICARE, SELFPAY ==
[2025-02-01 14:33] LABS: INTERNATIONAL NORM RATIO 1.4 (0.9-1.1); Prothrombin Time 17.3 SEC (11.2-13.5)
[2025-02-01 14:35] LABS: Partial Thromboplastin Time 36.1 SEC (26.7-34.1)
== END 2025-02-01 11:27 | disposition home or self-care (01) ==
LOC: HO.10HDL 11:26
PROVIDERS: Visit Provider Internal Medicine
DX: I82.401 Acute embolism and thrombosis of unspecified deep veins of right lower extremity (principal)
CPT/HCPCS: 36415; 85610; 85730; 99212

== ENCOUNTER 2025-02-05 11:31 | Outpatient (REF) | payer MEDICARE, SELFPAY ==
--- OUTSIDE RECORDS SUMMARY | 2022-10-28 14:18 | XMS_ITS | Encounter Summary ---
Author Organization [facility] Address [address] [place] [address] Phone Care Team Providers Care Felt Machine Mechanic Name Role Phone Jeannie Banda MD Primary Care Prov ider Encounter Details Date Type Department Care Team (Late st Contact Info) Description 10/28/2022 3:18 PM EDT Hospital Encounter [facility] [address] [place] [address] Nuria Keys, MASSEUR/MASSEUSE [address] [place] [address] [email or web address] Social History Tobacco Use Types Packs/Day Years [...] report originally createdby Leif Bueno. Nuria Keys MASSEUR/MASSEUSE IMG XR CHEST Final Resul t documented in this encounter Visit Diagnoses Not on filedocumented in this encounter Care Teams Felt Machine Mechanic Relationship Specialty Start Date End Date Jeannie Banda MD [address] [place] [address] [phone] PCP - General 10/28/22 documented as of this encounter Additional Source Comments The information contained in this document represents components of the legal health record. It is not the complete legal health record.[facility]
[2025-02-05 14:34] LABS: INTERNATIONAL NORM RATIO 1.0 (0.9-1.1); Prothrombin Time 12.6 SEC (11.2-13.5)
--- OUTSIDE RECORDS SUMMARY | 2025-02-05 15:17 | XMS_ITS | Clinical Summary ---
Author Organization [facility] Address [address] [phone] Phone Care Team Providers Care Condenser Operator Name Role Phone Jeannie Banda MD [...] REPLACEMENT MEDICARE REPLACEMENT MEDICARE REPLACEMENT Care Teams Condenser Operator Relationship Specialty Start Date End Date Jeannie Banda MD [address] [place] [address] PCP - General 10/28/22 Additional Source Comments The information contained in this document represents components of the legal health record. It is not the complete legal health record.[facility]
== END 2025-02-05 11:32 | disposition home or self-care (01) ==
LOC: HO.10HDL 11:31
PROVIDERS: Visit Provider Internal Medicine
DX: I82.401 Acute embolism and thrombosis of unspecified deep veins of right lower extremity (principal)
CPT/HCPCS: 36415; 85610

== ENCOUNTER 2025-02-11 11:14 | Outpatient (REF) | payer MEDICARE, SELFPAY ==
--- OUTSIDE RECORDS SUMMARY | 2022-10-28 14:18 | XMS_ITS | Encounter Summary ---
Author Organization [facility] Address [address] [place] [address] Phone Care Team Providers Care Quality Control Associate Name Role Phone Jeannie Banda MD Primary Care Prov ider Encounter Details Date Type Department Care Team (Late st Contact Info) Description 10/28/2022 3:18 PM EDT Hospital Encounter [facility] [address] [place] [address] Nuria Keys, TAPER OPERATOR [address] [place] [address] [email or web address] Social History Tobacco Use Types Packs/Day [...] report originally createdby Leif Bueno. Nuria Keys TAPER OPERATOR IMG XR CHEST Final Resul t documented in this encounter Visit Diagnoses Not on filedocumented in this encounter Care Teams Quality Control Associate Relationship Specialty Start Date End Date Jeannie Banda MD [address] [place] [address] [phone] PCP - General 10/28/22 documented as of this encounter Additional Source Comments The information contained in this document represents components of the legal health record. It is not the complete legal health record.[facility]
[2025-02-11 13:43] LABS: INTERNATIONAL NORM RATIO 1.8 (0.9-1.1); Prothrombin Time 22.0 SEC (11.2-13.5)
--- OUTSIDE RECORDS SUMMARY | 2025-02-11 14:43 | XMS_ITS | Clinical Summary ---
Author Organization [facility] Address [address] [phone] Phone Care Team Providers Care Patent Law Specialist Name Role Phone Jeannie Banda MD Primary [...] REPLACEMENT MEDICARE REPLACEMENT MEDICARE REPLACEMENT Care Teams Patent Law Specialist Relationship Specialty Start Date End Date Jeannie Banda MD [address] [place] [address] PCP - General 10/28/22 Additional Source Comments The information contained in this document represents components of the legal health record. It is not the complete legal health record.[facility]
== END 2025-02-11 11:15 | disposition home or self-care (01) ==
LOC: HO.10HDL 11:14
PROVIDERS: Visit Provider Internal Medicine
DX: I82.401 Acute embolism and thrombosis of unspecified deep veins of right lower extremity (principal)
CPT/HCPCS: 36415; 85610

== ENCOUNTER 2025-02-14 11:37 | Outpatient (REF) | payer MEDICARE, SELFPAY ==
[2025-02-14 13:21] LABS: INTERNATIONAL NORM RATIO 2.3 (0.9-1.1); Prothrombin Time 27.1 SEC (11.2-13.5)
== END 2025-02-14 11:38 | disposition home or self-care (01) ==
LOC: HO.10HDL 11:37
PROVIDERS: Visit Provider Internal Medicine
DX: I82.401 Acute embolism and thrombosis of unspecified deep veins of right lower extremity (principal)
CPT/HCPCS: 36415; 85610

== ENCOUNTER 2025-02-18 10:24 | Outpatient (REF) | payer MEDICARE, SELFPAY ==
[2025-02-18 11:13] LABS: INTERNATIONAL NORM RATIO 2.7 (0.9-1.1); Prothrombin Time 32.2 SEC (11.2-13.5)
== END 2025-02-18 10:25 | disposition home or self-care (01) ==
LOC: HO.10HDL 10:24
PROVIDERS: Visit Provider Internal Medicine
DX: I82.401 Acute embolism and thrombosis of unspecified deep veins of right lower extremity (principal)
CPT/HCPCS: 36415; 85610

== ENCOUNTER 2025-02-25 11:07 | Outpatient (REF) | payer MEDICARE, SELFPAY ==
[2025-02-25 12:31] LABS: INTERNATIONAL NORM RATIO 2.6 (0.9-1.1); Prothrombin Time 30.9 SEC (11.2-13.5)
== END 2025-02-25 11:08 | disposition home or self-care (01) ==
LOC: HO.LAB 11:07
PROVIDERS: PCP Internal Medicine; Visit Provider Internal Medicine
DX: I82.401 Acute embolism and thrombosis of unspecified deep veins of right lower extremity (principal)
CPT/HCPCS: 36415; 85610

== ENCOUNTER 2025-03-04 08:15 | Outpatient (REF) | payer MEDICARE, SELFPAY ==
--- OUTSIDE RECORDS SUMMARY | 2022-10-28 14:18 | XMS_ITS | Encounter Summary ---
Author Organization [facility] Address [address] [place] [address] Phone Care Team Providers Care Manufacturing Engineering Technologist Name Role Phone Jeannie Banda MD Primary Care Prov ider Encounter Details Date Type Department Care Team (Late st Contact Info) Description 10/28/2022 3:18 PM EDT Hospital Encounter [facility] [address] [place] [address] Nuria Keys, SPA ASSOCIATE [address] [place] [address] [email or web address] Social History Tobacco Use Types Packs/Day Years Used Date Smoking Tobacco: Former Cigarettes Smokeless Tobacco: Never Education Answer Date Recorded Are you interested in more education? Not on alyx e 10/28/2022 Are you concerned about learning? Not on file 10/28/2022 No 10/28/2022 No 10/28/2022 Digital Access Answer Date Recorded No 10/28/2022 No 10/28/2022 Reliable internet access at home? Not on file 10/28/2022 Device with a working camera? Not on file Comments Unknown Sex and Gender Information Value Date Recorded Sex Assigned at Not on file Legal Sex Female 2:03 PM EDT Gender Identity Not on file Sexual Orientation Not on file documented as of this encounter Plan of Treatment Not on file documented as of this encounter Procedures Procedure Name Priority Date/Time Associated Diagnosis Comments XR RIBS 3 OR MORE VIEWS WITH PA CHEST (RIGHT) Urgent/patient waiting 10/28/2022 3:26 PM EDT Rib pain on right side documented in this encounter Results * XR RIBS 3 OR MORE VIEWS WITH PA CHEST (RIGHT) (10/28/2022 3:26 PM EDT) Anatomical Region Laterality Modality Chest Computed Radiogr aphy 10/28/2022 3:48 PM EDT Impressions 10/28/2022 4:09 PM EDT Nondisplaced fractures of the right eighth and ninth ribs. ATTESTATION: Lisa Mccormick as teaching physician, have reviewed the images for this case and if necessary edited the report originally created by Leif Bueno. Narrative 10/28/2022 4:09 PM EDT XR RIBS 3 OR MORE VIEWS WITH PA CHEST (RIGHT) COMPARISON: None FINDINGS: Nondisplaced fractures of the right eighth and ninth ribs. PA evaluation of the chest demonstrates no focal consolidation, pleural effusion, pulmonary edema, or pneumothorax. Cardiomediastinal silhouette is normal. Surgical clips in the right upper quadrant. Multilevel degenerative changes of the visualized spine. Procedure Note Lisa Rosario MD - 10/28/2022 XR RIBS 3 OR MORE VIEWS WITH PA CHEST (RIGHT) COMPARISON: None FINDINGS: Nondisplaced fractures of the right eighth and ninth ribs. PA evaluation of the chest demonstrates no focal consolidation, pleuraleffusion, pulmonary edema, or pneumothorax. Cardiomediastinal silhouetteis normal. Surgical clips in the right upper quadrant. Multileveldegenerative changes of the visualized spine. IMPRESSION: Nondisplaced fractures of the right eighth and ninth ribs. ATTESTATION: Lisa Mccormick as teaching physician, have reviewed theimages for this case and if necessary edited the report originally createdby Leif Bueno. Nuria Keys SPA ASSOCIATE IMG XR CHEST Final Resul t documented in this encounter Visit Diagnoses Not on filedocumented in this encounter Care Teams Manufacturing Engineering Technologist Relationship Specialty Start Date End Date Jeannie Banda MD [address] [place] [address] [phone] PCP - General 10/28/22 documented as of this encounter Additional Source Comments The information contained in this document represents components of the legal health record. It is not the complete legal health record.[facility]
--- OUTSIDE RECORDS SUMMARY | 2025-03-04 08:18 | XMS_ITS | Clinical Summary ---
Author Organization [facility] Address [address] [phone] Phone Care Team Providers Care Adjunct Professor Name Role Phone Jeannie Banda MD Primary [...] REPLACEMENT MEDICARE REPLACEMENT MEDICARE REPLACEMENT Care Teams Adjunct Professor Relationship Specialty Start Date End Date Jeannie Banda MD [address] [place] [address] PCP - General 10/28/22 Additional Source Comments The information contained in this document represents components of the legal health record. It is not the complete legal health record.[facility]
[2025-03-04 09:53] LABS: INTERNATIONAL NORM RATIO 2.7 (0.9-1.1); Prothrombin Time 31.9 SEC (11.2-13.5)
== END 2025-03-04 08:16 | disposition home or self-care (01) ==
LOC: HO.10HDL 08:15
PROVIDERS: Visit Provider Internal Medicine
DX: I82.401 Acute embolism and thrombosis of unspecified deep veins of right lower extremity (principal)
CPT/HCPCS: 36415; 85610

== ENCOUNTER 2025-03-11 10:53 | Outpatient (REF) | payer MEDICARE, SELFPAY ==
--- OUTSIDE RECORDS SUMMARY | 2022-10-28 14:18 | XMS_ITS | Encounter Summary ---
Author Organization [facility] Address [address] [place] [address] Phone Care Team Providers Care Solderer Barrel Ribs Name Role Phone Jeannie Banda MD Primary Care Prov ider Encounter Details Date Type Department Care Team (Late st Contact Info) Description 10/28/2022 3:18 PM EDT Hospital Encounter [facility] [address] [place] [address] Nuria Keys, COURT ASSISTANT [address] [place] [address] [email or web address] Social History Tobacco Use Types Packs/Day [...] report originally createdby Leif Bueno. Nuria Keys COURT ASSISTANT IMG XR CHEST Final Resul t documented in this encounter Visit Diagnoses Not on filedocumented in this encounter Care Teams Solderer Barrel Ribs Relationship Specialty Start Date End Date Jeannie Banda MD [address] [place] [address] [phone] PCP - General 10/28/22 documented as of this encounter Additional Source Comments The information contained in this document represents components of the legal health record. It is not the complete legal health record.[facility]
--- OUTSIDE RECORDS SUMMARY | 2025-03-11 12:34 | XMS_ITS | Clinical Summary ---
Author Organization [facility] Address [address] [phone] Phone Care Team Providers Care Marketing Strategy Analyst Name Role Phone Jeannie Banda MD Primary [...] REPLACEMENT MEDICARE REPLACEMENT MEDICARE REPLACEMENT Care Teams Marketing Strategy Analyst Relationship Specialty Start Date End Date Jeannie Banda MD [address] [place] [phone] PCP - General 10/28/22 Additional Source Comments The information contained in this document represents components of the legal health record. It is not the complete legal health record.[facility]
[2025-03-11 13:25] LABS: INTERNATIONAL NORM RATIO 2.9 (0.9-1.1); Prothrombin Time 34.1 SEC (11.2-13.5)
== END 2025-03-11 10:54 ==
LOC: HO.10HDL 10:53
PROVIDERS: Visit Provider Internal Medicine
DX: I82.401 Acute embolism and thrombosis of unspecified deep veins of right lower extremity (principal)
CPT/HCPCS: 36415; 85610